=== PATIENT | male | born 1955 | race Caucasian/White ===

== ENCOUNTER 2021-03-08 20:07 | Emergency (ER) | payer OTHER ==
--- NOTE | 2021-03-08 21:01 | EDM.PDOC ---
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 He has bad eyesight and cannot read the orders that the cooks need to cook up he just follows with the Cook tells him to in terms of get more Burmese fries ready etc. He states at work the other day he could not remember people at the Burmese fries up on the counter for the curing room worker to take away or not. He just got back from a prolonged vacation 17 days down in [place] driving down the back with his brother. He is in type II diabetic control with Metformin 1000 mg twice daily and no recent medication changes. When this event occurred he did not have time to check his blood sugar. After talking with friends and relatives there was some concern that he may have suffered a stroke. Patient continues to work his shift with no problems with his arms legs or speech. He was reassured that it is unlikely that he suffered any cerebrovascular accident. This more likely that he had an altered change in his blood sugar or simply overwhelmed due to the busyness of the situation. He states has been a little more fatigued as of late usually gets up between 9 and 930 every morning and slept till noon today. Denies fever chills cough or sputum production. No genitourinary complaints. He has had both of his COVID-19 injections i.e. Moderna. Onset: Sudden Onset Date: 03/05/21 (Occurred while at work 4 days ago in the evening.) Duration: Minutes:, Improving Location: Reports: Other (Transient confusion memory problems.) Quality: Reports: Other (Transient memory problems) Severity: Mild Improves with: Reports: Other Worsens with: Reports: None (Problems since that night.) Context: Denies: Activity, Exercise, Sick Contact, Trauma, Other Associated Symptoms: Reports: Confusion, Malaise. 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 He is receiving injection into both eyes on a monthly basis. He is scheduled for left cataract extraction within the next 2 weeks. The right was done about 3 weeks ago.) Cardiovascular History: Reports: High Cholesterol, Hypertension, LA, Stents (She has [address] and believes that he still on Plavix.) Respiratory History: Reports: Asthma Psychiatric History: Reports: Depression Endocrine/Metabolic History: Reports: Diabetes, Type II (2 diabetic for greater than 15 years. Controlled by diet and Metformin 1000 mg twice daily) Social & Family History - Family History Family Medical History: No Pertinent Family History - Tobacco Use Tobacco Use Status *Q: Never Tobacco User Second Hand Smoke Exposure: No - Caffeine Use Caffeine Use: Reports: Soda - Recreational Drug Use Recreational Drug Use: No - Living Situation & Occupation Living situation: Reports: Occupation: Employed [employer] - Review of Systems Review Of Systems: See Below Constitutional: Reports: Malaise, Fatigue. Denies: Fever, Chills, Decreased Appetite, Weight Loss HEENT: Reports: Glasses, Other (Has had cataract extraction right eye and is due for cataract extraction left eye within the next week to 10 days) Respiratory: Reports: Shortness of Breath. Denies: Wheezing, Pleuritic Chest Pain (On exertion), Cough, Sputum, Hemoptysis Cardiovascular: Reports: Blood Pressure Problem, Edema. Denies: Chest Pain, Claudication (He believes he is on medicine for blood pressure.), Dyspnea on Exertion, Palpitations (Is in edema while on holidays particular affecting his left foot which is now better.) Endocrine: Reports: Fatigue, High Glucose GI/Abdominal: Reports: No Symptoms : Reports: Frequency, Other (Nocturia x1-2.) Musculoskeletal: Reports: Back Pain Skin: Reports: Other Neurological: Reports: Other (Transient memory problems well very busy in the workplace 4 nights ago.). Denies: Confusion, Dizziness, Headache, Numbness, Paresthesia, Pre-Existing Deficit, Seizure, Syncope, Tingling, Tremors, Trouble Speaking, Difficulty Walking, Weakness, Change in Speech, Gait Disturbance Psychiatric: Reports: No Symptoms Hematologic/Lymphatic: Reports: No Symptoms Immunologic: Reports: No Symptoms ED EXAM, NEURO - Physical Exam Exam: See Below Exam Limited By: No Limitations General Appearance: Alert, WD/WN, No Apparent Distress, Other (Temperature is 36.9 degrees. Heart rate was recorded at 108 and sinus on the monitor. Respiratory to 16 with O2 sats of 96% on room air BP 126/70) Eye Exam: Bilateral Eye: Normal Inspection (No scleral icterus or blepharal pallor.), PERRL Throat/Mouth: Normal Inspection, Normal Lips, Normal Oropharynx. No: Normal Teeth Head Exam: Atraumatic, Normocephalic Neck: Normal Inspection, Supple, Non-Tender, Full Range of Motion. No: Carotid Bruit, Lymphadenopathy (L), Lymphadenopathy (R), Thyromegaly Respiratory/Chest: No Respiratory Distress, Lungs Clear, Normal Breath Sounds, No Accessory Muscle Use Cardiovascular: Normal Peripheral Pulses, Regular Rate, Rhythm, No Edema, No Gallop, No Murmur, No Rub GI/Abdominal: Normal Bowel Sounds, Soft, Non-Tender, No Organomegaly, No Mass, Pelvis Stable, Other (Certainly obese.) Neurological: Alert, Normal Mood/Affect, Normal Dorsiflexion, CN II-XII Intact, Normal Plantar Flexion, Normal Gait, Normal Reflexes, No Motor/Sensory Deficits, Oriented x 3 Back Exam: Normal Inspection, Full Range of Motion, Other (Mildly increased lordotic curvature lumbar spine). No: CVA Tenderness (L), CVA Tenderness (R) Extremities: Normal Inspection, Normal Range of Motion, Non-Tender, No Pedal Edema Psychiatric: Normal Affect, Normal Mood, Anxious (Mildly anxious) Skin Exam: Warm, Dry, Intact, Normal Color, No Rash Course - Vital Signs Last Recorded V/S: Last Vital Signs Temp 36.9 C 03/08/21 20: Pulse 108 H 03/08/21 20:22 Resp 16 03/08/21 20:22 BP 126/70 03/08/21 20:22 Pulse Ox 96 03/08/21 20:22 - Orders/Labs/Meds Labs: Laboratory Tests 03/08/21 03/08/21 03/08/21 Range/Units 21:35 21:35 21:35 WBC 8.27 (4.23-9.07) K/mm3 RBC 4.63 (4.63-6.08) M/mm3 Hgb 13.4 L (13.7-17.5) gm/dl Hct 41.6 (40.1-51.0) % MCV 89.8 (79.0-92.2) fl MCH 28.9 (25.7-32.2) pg MCHC 32.2 (32.2-35.5) g/dl RDW Std Deviation 42.1 (35.1-43.9) fL Plt Count 207 (163-337) K/mm3 MPV 10.0 (9.4-12.3) fl Neut % (Auto) 61.5 (34.0-67.9) % Lymph % (Auto) 24.1 (21.8-53.1) % Tillman % (Auto) 10.3 (5.3-12.2) % Eos % (Auto) 3.4 (0.8-7.0) Baso % (Auto) 0.2 (0.1-1.2) % Neut # (Auto) 5.09 (1.78-5.38) K/mm3 Lymph # (Auto) 1.99 (1.32-3.57) K/mm3 Tillman # (Auto) 0.85 H (0.30-0.82) K/mm3 Eos # (Auto) 0.28 (0.04-0.54) K/mm3 Baso # (Auto) 0.02 (0.01-0.08) K/mm3 Sodium 137 (136-145) mEq/L Potassium 4.0 (3.5-5.1) mEq/L Chloride 103 (98-107) mEq/L Carbon Dioxide 27 (21-32) mEq/L Anion Gap 11.0 (5-15) BUN 33 H (7-18) mg/dL Creatinine 1.3 (0.7-1.3) mg/dL Est Cr Clr Drug Dosing TNP Estimated GFR (MDRD) 55 (>60) mL/min BUN/Creatinine Ratio 25.4 H (14-18) Glucose 223 H (70-99) mg/dL Calcium 8.8 (8.5-10.1) mg/dL Magnesium 2.2 (1.8-2.4) mg/dL Total Bilirubin 0.3 (0.2-1.0) mg/dL AST 41 H (15-37) U/L ALT 93 H (16-63) U/L Alkaline Phosphatase 49 (46-116) U/L Troponin I < 0.017 (0.00-0.056) ng/mL C-Reactive Protein <0.2 (<1.0) mg/dL NT-Pro-B Natriuret Pep 50 (0-125) pg/mL Total Protein 7.8 (6.4-8.2) g/dl Albumin 3.5 (3.4-5.0) g/dl Globulin 4.3 gm/dL Albumin/Globulin Ratio 0.8 L (1-2) TSH 3rd Generation 1.475 (0.358-3.74) uIU/mL Urine Color (Yellow) Urine Appearance (Clear) Urine pH (5.0-8.0) Ur Specific [place] (1.005-1.030) Urine Protein (Negative) Urine Glucose (UA) (Negative) Urine Ketones (Negative) Urine Occult Blood (Negative) Urine Nitrite (Negative) Urine Bilirubin (Negative) Urine Urobilinogen (0.2-1.0) Ur Leukocyte Esterase (Negative) Urine RBC (0-5) /hpf Urine WBC (0-5) /hpf Ur Squamous Epith Cells (0-5) /hpf Urine Bacteria (FEW) /hpf Urine Mucus (FEW) /hpf 03/08/21 Range/Units 22:10 WBC (4.23-9.07) K/mm3 RBC (4.63-6.08) M/mm3 Hgb (13.7-17.5) gm/dl Hct (40.1-51.0) % MCV (79.0-92.2) fl MCH (25.7-32.2) pg MCHC (32.2-35.5) g/dl RDW Std Deviation (35.1-43.9) fL Plt Count (163-337) K/mm3 MPV (9.4-12.3) fl Neut % (Auto) (34.0-67.9) % Lymph % (Auto) (21.8-53.1) % Tillman % (Auto) (5.3-12.2) % Eos % (Auto) (0.8-7.0) Baso % (Auto) (0.1-1.2) % Neut # (Auto) (1.78-5.38) K/mm3 Lymph # (Auto) (1.32-3.57) K/mm3 Tillman # (Auto) (0.30-0.82) K/mm3 Eos # (Auto) (0.04-0.54) K/mm3 Baso # (Auto) (0.01-0.08) K/mm3 Sodium (136-145) mEq/L Potassium (3.5-5.1) mEq/L Chloride (98-107) mEq/L Carbon Dioxide (21-32) mEq/L Anion Gap (5-15) BUN (7-18) mg/dL Creatinine (0.7-1.3) mg/dL Est Cr Clr Drug Dosing Estimated GFR (MDRD) (>60) mL/min BUN/Creatinine Ratio (14-18) Glucose (70-99) mg/dL Calcium (8.5-10.1) mg/dL Magnesium (1.8-2.4) mg/dL Total Bilirubin (0.2-1.0) mg/dL AST (15-37) U/L ALT (16-63) U/L Alkaline Phosphatase (46-116) U/L Troponin I (0.00-0.056) ng/mL C-Reactive Protein (<1.0) mg/dL NT-Pro-B Natriuret Pep (0-125) pg/mL Total Protein (6.4-8.2) g/dl Albumin (3.4-5.0) g/dl Globulin gm/dL Albumin/Globulin Ratio (1-2) TSH 3rd Generation (0.358-3.74) uIU/mL Urine Color Yellow (Yellow) Urine Appearance Clear (Clear) Urine pH 5.5 (5.0-8.0) Ur Specific [place] 1.025 (1.005-1.030) Urine Protein Negative (Negative) Urine Glucose (UA) 1+ H (Negative) Urine Ketones Negative (Negative) Urine Occult Blood Negative (Negative) Urine Nitrite Negative (Negative) Urine Bilirubin Negative (Negative) Urine Urobilinogen 0.2 (0.2-1.0) Ur Leukocyte Esterase Negative (Negative) Urine RBC 0-5 (0-5) /hpf Urine WBC Not seen (0-5) /hpf Ur Squamous Epith Cells 0-5 (0-5) /hpf Urine Bacteria Rare (FEW) /hpf Urine Mucus Few (FEW) /hpf - Radiology Interpretation Free Text/Narrative:: 65-year-old male presents to the ED with concerns about having suffered a stroke perhaps 4 days ago. 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 He states his eyesight is so bad that he cannot read the orders that are going to be required for the meals to be made up. He takes orders from the Cook and has to multitask and stay very busy. He states when asked if he had with a friend try to order up on the counter for the curing room worker to deliver to the patient stable he states he could not remember. The curing room worker later indicated that she had in fact picked up the Burmese fries and taken him to the appropriate table. Friends and family are telling him that he may have suffered a stroke. This lack of focus and memory has never happened before. Of note he just got back to work after 17-day vacation where he and his brother drove down to [place]. He does have diabetes. He was not able to check his blood sugar when he had this episode at work. Although he usually can tell when he develops hypoglycemia due to the tremor and the nausea and upset stomach. His neuro exam is normal. He has blurred vision due to having cataract extraction in his right eye and is due to have the left one done within the next 2 weeks. He has not had an adjustment made to his eyeglasses. Plan routine labs to be done. - Re-Assessments/Exams Free Text/Narrative Re-Assessment/Exam: 03/08/21 22:26 White count is normal at 8.27. Differential shows 61.5% neutrophils. Hemoglobin is 13.4 with hematocrit of 41.6. MCV is 89.8. Platelet count is 207,000 sodium 137 with a potassium of 4.0. Chloride 103 with a bicarb of 27. Anion gap is 11.0. BUN is 33 with a creatinine of 1.3. Glucose is elevated at 223. Calcium is 8.8 with a magnesium of 2.2 bilirubin is 0.3. AST mildly elevated at 41 ALT elevated at 93. Alkaline phosphatase normal at 49. Troponin I was less than 0.017 C-reactive protein less than 0.2. BNP was 50 with a total protein of 7.8 and albumin fraction of 3.5 TSH is 1.475. Urinalysis showed 1++ glucosuria but no signs of infection. Patient was reassured that I could find no abnormalities in his labs that would account for transient loss of memory and I believe his memory lapse was secondary to having to multitask and simply losing track of what had and had not been done. Certainly reassured that there is no evidence that he has suffered any form of a stroke. He will follow-up with his primary care provider at the [place] [facility] if any further problems occur. Departure - Departure Time of Disposition: 22:43 Disposition: Home, Self-Care 01 Condition: Fair Clinical Impression: Transient memory loss, Visual impairment Type 2 diabetes mellitus Qualifiers: Diabetes mellitus intermission coordinator insulin use: without intermission coordinator use Diabetes mellitus complication detail: with diabetic retinopathy - Discharge Information *PRESCRIPTION DRUG MONITORING PROGRAM REVIEWED*: Not Applicable *COPY OF PRESCRIPTION DRUG MONITORING REPORT IN PATIENT JUSTICE: Not Applicable Instructions: Transient Global Amnesia Referrals: Naomi Grace MD [Primary Care Provider] - Forms: ED Department Discharge Additional Instructions: Evaluation the emergency room tonight in regards to a bout of transient memory loss while at work and very busy at the time, 4 days ago. No memory problems since that time. There is certainly no evidence of having had a stroke. Stroke symptoms would have been much more severe and made something not work right such as eyesight or arm leg weakness or trouble speaking. Since you are able to continue on with your work but could not remember if you had brought up the order or not would be considered admit normal memory labs when you are very busy and multitasking. Due to your diabetes and history of heart disease lab work was completed in the emergency room tonight and all was found to be normal other than blood sugar of 223 which you stated is fairly normal for you with this time of day. Certainly no signs of infection the urine was clear. In particular your kidney function was very close to normal with a creatinine of 1.3 and a GFR of 55 today. Liver function was also normal and there was no evidence of any heart related illness. At this point time I would suggest memory lapse was due to being extremely busy in the workplace and happens to the best of us when we are trying to multitask or do multiple things at the same time. No further investigations are required at this time Sepsis Event Note (ED) - Evaluation Sepsis Screening Result: No Definite Risk - Focused Exam Vital Signs: Vital Signs Temp Pulse Resp BP Pulse Ox 03/08/21 20:22 36.9 C 108 H 16 126/70 96
== END 2021-03-08 22:58 | disposition home or self-care (01) ==
LOC: JD.ED 20:07
DX: R41.3 Other amnesia (principal); H54.7 Unspecified visual loss; E11.319 Type 2 diabetes mellitus with unspecified diabetic retinopathy without macular edema; E78.00 Pure hypercholesterolemia, unspecified; I10 Essential (primary) hypertension; I25.2 Old myocardial infarction; Z95.5 Presence of coronary angioplasty implant and graft; Z79.02 Long term (current) use of antithrombotics/antiplatelets
CPT/HCPCS: 36415; 80053; 81001; 83735; 83880; 84443; 84484; 85025; 86140; 99284; 99284-25